=== PATIENT | female | born 1995 | race Caucasian/White ===

== ENCOUNTER 2023-10-14 08:35 | Emergency (ER) | payer MEDICAID ==
[~2023-10-14] VITALS: Ht 152.4 cm; Wt 50.8 kg
[~2023-10-14 08:35] MED LIST: ALBU8HFA PO; AZIT250T PO; ONDA4TAB59 PO; ONDA8TAB6 PO; ZOF4T PO
[2023-10-14 10:57] VITALS: BP 118/70; PULSE 74; RESP 16; TEMP 98.5; O2SAT 98
== END 2023-10-14 10:58 | disposition home or self-care (01) ==
LOC: ER 08:36
DX: F11.20 Opioid dependence, uncomplicated (principal); J45.909 Unspecified asthma, uncomplicated; Z79.2 Long term (current) use of antibiotics; Z79.899 Other long term (current) drug therapy
CPT/HCPCS: 99281